=== PATIENT | male | born 1995 | race Two or more races ===

== ENCOUNTER 2017-12-21 20:55 | Emergency (ER) | payer OTHER ==
[2017-12-21 21:00] VITALS: BP 136/86
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
[2017-12-21] MEDS ORDERED: IBUPROFEN 800 MG TAB PO ONE (22:10)
== END 2017-12-21 22:20 | disposition home or self-care (01) ==
DX: S82.61XA Displaced fracture of lateral malleolus of right fibula, initial encounter for closed fracture (principal); S90.512A Abrasion, left ankle, initial encounter; V18.0XXA Pedal cycle driver injured in noncollision transport accident in nontraffic accident, initial encounter; Y99.8 Other external cause status; Y93.89 Activity, other specified
CPT/HCPCS: L4386